=== PATIENT | female | born 1985 | race Caucasian/White ===

== ENCOUNTER 2020-09-19 13:30 | Emergency (ER) | payer OTHER, SELFPAY | END 2020-09-19 14:00 | disposition left against medical advice (07) | LOC: EXPBETH 13:57 | PROVIDERS: Emergency Provider Nurse Practitioner Family | DX: Z53.21 Procedure and treatment not carried out due to patient leaving prior to being seen by health care provider (principal) | CPT/HCPCS: 99199 ==